=== PATIENT | male | born 1950 | race Caucasian/White ===

== ENCOUNTER 2018-10-13 18:47 | Inpatient (IN) | payer MEDICARE, OTHER ==
[2018-10-13] MEDS ORDERED: GLUCAGON 1 MG INJ IM (21:01)
[2018-10-13] MEDS ORDERED: ATORVASTATIN 20 MG TAB PO (21:01)
[2018-10-13] MEDS ORDERED: PANTOPRAZOLE 40 MG INJ IV (21:01)
[2018-10-13] MEDS ORDERED: ACETAMINOPHEN 325 MG TAB PO (21:01)
[2018-10-13] MEDS ORDERED: AMLODIPINE 5 MG TAB PO (21:01)
[2018-10-13] MEDS ORDERED: GLUCOSE GEL 15 GRAM TUBE BUCCAL (21:01)
[2018-10-13] MEDS ORDERED: NACL 0.9% 3 ML SYG IV (21:01)
[2018-10-13] MEDS ORDERED: TAMSULOSIN (SR) 0.4 MG CAP PO (21:01)
[2018-10-13] MEDS ORDERED: hydrALAzine 20 MG INJ IV (21:01)
[2018-10-13] MEDS ORDERED: ONDANSETRON 4 MG INJ IV (21:01)
[2018-10-13] MEDS ORDERED: ENOXAPARIN 40 MG/0.4 ML SYG SC (21:01)
[2018-10-13] MEDS ORDERED: HYDROmorphONE 0.5 MG/0.5 ML SYG IV (21:01)
[2018-10-13] MEDS ORDERED: GLUCOSE GEL 15 GRAM TUBE PO ×2 (21:01)
[2018-10-13] MEDS ORDERED: DEXTROSE 50% 50 ML SYRINGE IV ×2 (21:01)
[2018-10-13] MEDS ORDERED: ALBUTEROL/IPRATROPIUM (NEB) 3 ML AMP HHN (21:01)
[2018-10-13] MEDS ORDERED: LOSARTAN 50 MG TAB PO (21:01)
[2018-10-13] MEDS: HYDROCODONE/APAP (5/325) TAB PO (22:14)
[2018-10-13] MEDS: TAMSULOSIN (SR) 0.4 MG CAP PO (22:15)
[2018-10-13] MEDS: LOSARTAN 50 MG TAB PO (22:16)
[2018-10-13] MEDS: AMLODIPINE 5 MG TAB PO (22:17)
[2018-10-13] MEDS: ATORVASTATIN 20 MG TAB PO (22:17)
[2018-10-14 00:32] LABS: ADD UMIC YES; UR ASCORBIC ACID NEGATIVE (NEGATIVE); UR BACTERIA FEW /HPF (NONE SEEN); UR BILIRUBIN (Dip) NEGATIVE (NEGATIVE); UR BLOOD (Dip) 3+ mg/dL (NEGATIVE); UR CLARITY CLEAR (CLEAR); UR COLOR YELLOW (YELLOW); UR GLUCOSE (Dip) 1+ mg/dL (NEGATIVE); UR KETONES (Dip) NEGATIVE (NEGATIVE); UR LEUKOCYTE ESTERASE (Dip) NEGATIVE Leu/ul (NEGATIVE); UR NITRITE (Dip) NEGATIVE (NEGATIVE); UR RBC > 182 /HPF (0-5); UR SPECIFIC GRAVITY (Dip) 1.015 (1.003-1.030); UR TOTAL PROTEIN (Dip) 2+ mg/dl (NEGATIVE); UR UROBILINOGEN (Dip) NEGATIVE (NEGATIVE); UR WBC 5 /HPF (0-5)
[2018-10-14] MEDS: ZOLPIDEM 5 MG TAB PO (02:23)
[2018-10-14] MEDS ORDERED: BISACODYL 10 MG SUPP PR (05:00)
[2018-10-14] MEDS ORDERED: MAGNESIUM HYDROXIDE 30ML CUP PO (05:00)
[2018-10-14] MEDS ORDERED: LACTULOSE 30ML CUP PO (05:00)
[2018-10-14] MEDS: PANTOPRAZOLE (EC) 40 MG TAB PO ×2 (06:23→17:49)
[2018-10-14 08:26] LABS: ADD MAN DIFF? NO
[2018-10-14] MEDS: HYDROCODONE/APAP (5/325) TAB PO ×2 (08:40→21:13)
[2018-10-14 08:41] LABS: BASOPHILS % 0.5 % (0.0-2.0); EOSINOPHILS # 0.2 10^3/ul (0.0-0.5); EOSINOPHILS % 2.3 % (0.0-7.0); HEMATOCRIT 33.6 % (42.0-52.0); HEMOGLOBIN 11.4 g/dl (14.0-18.0); LYMPHOCYTES # 1.7 10^3/ul (0.8-2.9); LYMPHOCYTES % 20.2 % (15.0-51.0); MEAN CORPUSCULAR HEMOGLOBIN 31.1 pg (29.0-33.0); MEAN CORPUSCULAR HGB CONC 33.9 g/dl (32.0-37.0); MEAN CORPUSCULAR VOLUME 91.6 fl (82.0-101.0); MEAN PLATELET VOLUME 10.8 fl (7.4-10.4); MONOCYTE # 0.5 10^3/ul (0.3-0.9); MONOCYTES % 5.9 % (0.0-11.0); NEUTROPHIL # 5.7 10^3/ul (1.6-7.5); NEUTROPHILS % 70.4 % (39.0-77.0); PLATELET COUNT 215 10^3/UL (140-415); RED BLOOD COUNT 3.67 10^6/ul (4.70-6.10); RED CELL DISTRIBUTION WIDTH 13.9 % (11.5-14.5)
[2018-10-14 08:41] LABS: WHITE BLOOD COUNT 8.2 10^3/ul (4.8-10.8)
[2018-10-14] MEDS: LOSARTAN 50 MG TAB PO ×2 (08:42→21:13)
[2018-10-14] MEDS: ASPIRIN 81 MG TAB PO (08:42)
[2018-10-14] MEDS: FOLIC ACID 1 MG TAB PO (08:42)
[2018-10-14] MEDS: DOCUSATE SODIUM 250 MG CAP PO (08:42)
[2018-10-14] MEDS: AMLODIPINE 5 MG TAB PO ×2 (08:42→21:13)
[2018-10-14 09:20] LABS: ALANINE AMINOTRANSFERASE 14 IU/L (13-69); ALBUMIN 2.8 g/dl (3.3-4.9); ALKALINE PHOSPHATASE 84 IU/L (42-121); ANION GAP 9 (5-13); ASPARTATE AMINO TRANSFERASE 21 IU/L (15-46); BILIRUBIN,INDIRECT 0.2 mg/dl (0-1.1); BILIRUBIN,TOTAL 0.2 mg/dl (0.2-1.3); BLOOD UREA NITROGEN 7 mg/dl (7-20); CALCIUM 8.7 mg/dl (8.4-10.2); CARBON DIOXIDE 25 mmol/L (21-31); CHLORIDE 101 mmol/L (97-110); CREATININE 0.66 mg/dl (0.61-1.24); Estimated GFR > 60 mL/min (>60); GLUCOSE 134 mg/dl (70-220); POTASSIUM 3.2 mmol/L (3.5-5.1); SODIUM 135 mmol/L (135-144); TOTAL PROTEIN 5.6 g/dl (6.1-8.1)
[2018-10-14] MEDS: ATORVASTATIN 20 MG TAB PO (21:13)
[2018-10-14] MEDS: TAMSULOSIN (SR) 0.4 MG CAP PO (21:14)
[2018-10-15] MEDS: POTASSIUM CHLORIDE (SR) 20 MEQ TAB PO (02:44)
[2018-10-15] MEDS: HYDROCODONE/APAP (5/325) TAB PO (02:45)
[2018-10-15] MEDS: PANTOPRAZOLE (EC) 40 MG TAB PO ×2 (06:35→16:55)
[2018-10-15 07:17] LABS: ANION GAP 7 (5-13); BLOOD UREA NITROGEN 8 mg/dl (7-20); CALCIUM 8.6 mg/dl (8.4-10.2); CARBON DIOXIDE 26 mmol/L (21-31); CHLORIDE 101 mmol/L (97-110); CREATININE 0.72 mg/dl (0.61-1.24); Estimated GFR > 60 mL/min (>60); GLUCOSE 119 mg/dl (70-220); POTASSIUM 3.3 mmol/L (3.5-5.1); SODIUM 134 mmol/L (135-144)
[2018-10-15] MEDS: DOCUSATE SODIUM 250 MG CAP PO (09:48)
[2018-10-15] MEDS: FOLIC ACID 1 MG TAB PO (09:48)
[2018-10-15] MEDS: AMLODIPINE 5 MG TAB PO ×2 (09:49→20:45)
[2018-10-15] MEDS: ASPIRIN 81 MG TAB PO (09:49)
[2018-10-15] MEDS: LOSARTAN 50 MG TAB PO ×2 (09:49→20:45)
[2018-10-15] MEDS: ENOXAPARIN 40 MG/0.4 ML SYG SC (09:50)
[2018-10-15] MEDS: ATORVASTATIN 20 MG TAB PO (20:45)
[2018-10-15] MEDS: TAMSULOSIN (SR) 0.4 MG CAP PO (20:45)
[2018-10-15] MEDS: ACETAMINOPHEN 325 MG TAB PO (20:46)
[2018-10-16] MEDS: HYDROCODONE/APAP (5/325) TAB PO ×2 (02:12→17:33)
[2018-10-16] MEDS: PANTOPRAZOLE (EC) 40 MG TAB PO ×2 (06:32→17:32)
[2018-10-16 08:31] LABS: ADD MAN DIFF? NO
[2018-10-16] MEDS: ACETAMINOPHEN 325 MG TAB PO ×2 (08:42→15:08)
[2018-10-16] MEDS: DOCUSATE SODIUM 250 MG CAP PO (08:42)
[2018-10-16] MEDS: FOLIC ACID 1 MG TAB PO (08:42)
[2018-10-16 08:43] LABS: BASOPHIL # 0.1 10^3/ul (0.0-0.1); BASOPHILS % 0.9 % (0.0-2.0); EOSINOPHILS # 0.2 10^3/ul (0.0-0.5); EOSINOPHILS % 2.1 % (0.0-7.0); HEMATOCRIT 34.3 % (42.0-52.0); HEMOGLOBIN 11.6 g/dl (14.0-18.0); LYMPHOCYTES # 1.4 10^3/ul (0.8-2.9); LYMPHOCYTES % 16.9 % (15.0-51.0); MEAN CORPUSCULAR HEMOGLOBIN 30.9 pg (29.0-33.0); MEAN CORPUSCULAR HGB CONC 33.8 g/dl (32.0-37.0); MEAN CORPUSCULAR VOLUME 91.2 fl (82.0-101.0); MEAN PLATELET VOLUME 9.6 fl (7.4-10.4); MONOCYTE # 0.4 10^3/ul (0.3-0.9); MONOCYTES % 4.4 % (0.0-11.0); NEUTROPHIL # 6.1 10^3/ul (1.6-7.5); NEUTROPHILS % 74.8 % (39.0-77.0); PLATELET COUNT 269 10^3/UL (140-415); RED BLOOD COUNT 3.76 10^6/ul (4.70-6.10); RED CELL DISTRIBUTION WIDTH 13.9 % (11.5-14.5)
[2018-10-16 08:43] LABS: WHITE BLOOD COUNT 8.1 10^3/ul (4.8-10.8)
[2018-10-16] MEDS: LOSARTAN 50 MG TAB PO ×2 (08:43→21:18)
[2018-10-16] MEDS: ENOXAPARIN 40 MG/0.4 ML SYG SC ×2 (08:43→10:18)
[2018-10-16] MEDS: AMLODIPINE 5 MG TAB PO ×2 (08:43→21:18)
[2018-10-16] MEDS: ASPIRIN 81 MG TAB PO (08:49)
[2018-10-16 09:09] LABS: ANION GAP 9 (5-13); BLOOD UREA NITROGEN 10 mg/dl (7-20); CALCIUM 8.8 mg/dl (8.4-10.2); CARBON DIOXIDE 24 mmol/L (21-31); CHLORIDE 99 mmol/L (97-110); CREATININE 0.73 mg/dl (0.61-1.24); Estimated GFR > 60 mL/min (>60); GLUCOSE 149 mg/dl (70-220); MAGNESIUM 1.4 mg/dl (1.7-2.5); PHOSPHORUS 2.8 mg/dl (2.5-4.9); POTASSIUM 3.4 mmol/L (3.5-5.1); SODIUM 132 mmol/L (135-144)
[2018-10-16] MEDS: MAGNESIUM OXIDE 400 MG TAB PO (12:10)
[2018-10-16] MEDS: POTASSIUM CHLORIDE 20 MEQ POWDER FOR ORAL SOLN PO (12:10)
[2018-10-16] MEDS: ATORVASTATIN 20 MG TAB PO (21:17)
[2018-10-16] MEDS: TAMSULOSIN (SR) 0.4 MG CAP PO (21:17)
[2018-10-17] MEDS: PANTOPRAZOLE (EC) 40 MG TAB PO ×2 (06:19→17:18)
[2018-10-17] MEDS: DOCUSATE SODIUM 250 MG CAP PO (08:29)
[2018-10-17] MEDS: AMLODIPINE 5 MG TAB PO ×2 (08:29→20:32)
[2018-10-17] MEDS: FOLIC ACID 1 MG TAB PO (08:29)
[2018-10-17] MEDS: LOSARTAN 50 MG TAB PO ×2 (08:29→20:32)
[2018-10-17] MEDS: ENOXAPARIN 40 MG/0.4 ML SYG SC (08:37)
[2018-10-17] MEDS: ASPIRIN 81 MG TAB PO (08:37)
[2018-10-17 10:07] LABS: ADD MAN DIFF? NO
[2018-10-17 10:10] LABS: WHITE BLOOD COUNT 8.4 10^3/ul (4.8-10.8)
[2018-10-17 10:10] LABS: BASOPHIL # 0.1 10^3/ul (0.0-0.1); EOSINOPHILS # 0.1 10^3/ul (0.0-0.5); EOSINOPHILS % 1.6 % (0.0-7.0); HEMATOCRIT 32.5 % (42.0-52.0); HEMOGLOBIN 10.9 g/dl (14.0-18.0); LYMPHOCYTES # 1.1 10^3/ul (0.8-2.9); LYMPHOCYTES % 13.3 % (15.0-51.0); MEAN CORPUSCULAR HEMOGLOBIN 30.8 pg (29.0-33.0); MEAN CORPUSCULAR HGB CONC 33.5 g/dl (32.0-37.0); MEAN CORPUSCULAR VOLUME 91.8 fl (82.0-101.0); MEAN PLATELET VOLUME 9.7 fl (7.4-10.4); MONOCYTE # 0.3 10^3/ul (0.3-0.9); MONOCYTES % 3.5 % (0.0-11.0); NEUTROPHIL # 6.7 10^3/ul (1.6-7.5); NEUTROPHILS % 79.8 % (39.0-77.0); PLATELET COUNT 281 10^3/UL (140-415); RED BLOOD COUNT 3.54 10^6/ul (4.70-6.10); RED CELL DISTRIBUTION WIDTH 14.1 % (11.5-14.5)
[2018-10-17] MEDS: HYDROCODONE/APAP (5/325) TAB PO ×2 (11:28→20:31)
[2018-10-17 15:26] LABS: ADD UMIC YES; UR ASCORBIC ACID NEGATIVE (NEGATIVE); UR BACTERIA FEW /HPF (NONE SEEN); UR BILIRUBIN (Dip) NEGATIVE (NEGATIVE); UR BLOOD (Dip) 3+ mg/dL (NEGATIVE); UR CLARITY SLIGHTLY CLOUDY (CLEAR); UR COLOR RED (YELLOW); UR GLUCOSE (Dip) 1+ mg/dL (NEGATIVE); UR KETONES (Dip) NEGATIVE (NEGATIVE); UR LEUKOCYTE ESTERASE (Dip) TRACE Leu/ul (NEGATIVE); UR NITRITE (Dip) NEGATIVE (NEGATIVE); UR RBC > 182 /HPF (0-5); UR SPECIFIC GRAVITY (Dip) 1.013 (1.003-1.030); UR TOTAL PROTEIN (Dip) 2+ mg/dl (NEGATIVE); UR UROBILINOGEN (Dip) NEGATIVE (NEGATIVE); UR WBC 103 /HPF (0-5)
[2018-10-17] MEDS: TAMSULOSIN (SR) 0.4 MG CAP PO (20:31)
[2018-10-17] MEDS: ATORVASTATIN 20 MG TAB PO (20:31)
[2018-10-17] MEDS: ZOLPIDEM 5 MG TAB PO (20:33)
[2018-10-18] MEDS: HYDROCODONE/APAP (5/325) TAB PO ×2 (02:10→19:54)
[2018-10-18] MEDS: PANTOPRAZOLE (EC) 40 MG TAB PO ×2 (06:42→17:41)
[2018-10-18] MEDS: ACETAMINOPHEN 325 MG TAB PO ×2 (08:38→21:56)
[2018-10-18] MEDS: ASPIRIN 81 MG TAB PO (08:38)
[2018-10-18] MEDS: DOCUSATE SODIUM 250 MG CAP PO (08:38)
[2018-10-18] MEDS: AMLODIPINE 5 MG TAB PO ×2 (08:39→20:30)
[2018-10-18] MEDS: LOSARTAN 50 MG TAB PO ×2 (08:39→20:29)
[2018-10-18] MEDS: FOLIC ACID 1 MG TAB PO (08:39)
[2018-10-18] MEDS: ENOXAPARIN 40 MG/0.4 ML SYG SC (08:40)
[2018-10-18] MEDS: TAMSULOSIN (SR) 0.4 MG CAP PO (20:29)
[2018-10-18] MEDS: ATORVASTATIN 20 MG TAB PO (20:30)
[2018-10-18] MEDS: ZOLPIDEM 5 MG TAB PO (21:56)
[2018-10-19] MEDS: HYDROCODONE/APAP (5/325) TAB PO ×3 (02:15→16:33)
[2018-10-19] MEDS: ACETAMINOPHEN 325 MG TAB PO (04:03)
[2018-10-19] MEDS: PANTOPRAZOLE (EC) 40 MG TAB PO ×2 (06:22→17:53)
[2018-10-19] MEDS: DOCUSATE SODIUM 250 MG CAP PO (09:51)
[2018-10-19] MEDS: FOLIC ACID 1 MG TAB PO (09:51)
[2018-10-19] MEDS: ASPIRIN 81 MG TAB PO (09:51)
[2018-10-19] MEDS: ENOXAPARIN 40 MG/0.4 ML SYG SC (09:51)
[2018-10-19] MEDS: LOSARTAN 50 MG TAB PO ×2 (09:52→20:24)
[2018-10-19] MEDS: AMLODIPINE 5 MG TAB PO ×2 (09:53→20:24)
[2018-10-19] MEDS: TAMSULOSIN (SR) 0.4 MG CAP PO ×2 (13:57→20:24)
[2018-10-19] MEDS: ATORVASTATIN 20 MG TAB PO (20:25)
[2018-10-20] MEDS: HYDROCODONE/APAP (5/325) TAB PO ×3 (03:48→20:28)
[2018-10-20] MEDS: PANTOPRAZOLE (EC) 40 MG TAB PO ×2 (06:23→17:25)
[2018-10-20] MEDS: ENOXAPARIN 40 MG/0.4 ML SYG SC (08:07)
[2018-10-20] MEDS: AMLODIPINE 5 MG TAB PO ×2 (08:08→20:27)
[2018-10-20] MEDS: TAMSULOSIN (SR) 0.4 MG CAP PO ×2 (08:08→20:27)
[2018-10-20] MEDS: ASPIRIN 81 MG TAB PO (08:08)
[2018-10-20] MEDS: FOLIC ACID 1 MG TAB PO (08:08)
[2018-10-20] MEDS: DOCUSATE SODIUM 250 MG CAP PO (08:09)
[2018-10-20] MEDS: LOSARTAN 50 MG TAB PO ×2 (08:09→20:26)
[2018-10-20] MEDS: ATORVASTATIN 20 MG TAB PO (20:26)
[2018-10-20] MEDS: ZOLPIDEM 5 MG TAB PO (22:16)
[2018-10-21] MEDS: PANTOPRAZOLE (EC) 40 MG TAB PO ×2 (06:08→17:57)
[2018-10-21] MEDS: FOLIC ACID 1 MG TAB PO (09:05)
[2018-10-21] MEDS: TAMSULOSIN (SR) 0.4 MG CAP PO ×2 (09:05→22:10)
[2018-10-21] MEDS: DOCUSATE SODIUM 250 MG CAP PO (09:05)
[2018-10-21] MEDS: HYDROCODONE/APAP (5/325) TAB PO ×2 (09:05→19:57)
[2018-10-21] MEDS: ASPIRIN 81 MG TAB PO (09:05)
[2018-10-21] MEDS: AMLODIPINE 5 MG TAB PO ×2 (09:06→22:20)
[2018-10-21] MEDS: LOSARTAN 50 MG TAB PO ×2 (09:06→22:18)
[2018-10-21] MEDS: ENOXAPARIN 40 MG/0.4 ML SYG SC (09:07)
[2018-10-21] MEDS: ATORVASTATIN 20 MG TAB PO (22:10)
[2018-10-21] MEDS: ZOLPIDEM 5 MG TAB PO (22:11)
[2018-10-22] MEDS: HYDROCODONE/APAP (5/325) TAB PO ×2 (02:37→20:22)
[2018-10-22] MEDS: PANTOPRAZOLE (EC) 40 MG TAB PO ×2 (06:23→17:32)
[2018-10-22] MEDS: FOLIC ACID 1 MG TAB PO (08:11)
[2018-10-22] MEDS: ASPIRIN 81 MG TAB PO (08:11)
[2018-10-22] MEDS: DOCUSATE SODIUM 250 MG CAP PO (08:11)
[2018-10-22] MEDS: TAMSULOSIN (SR) 0.4 MG CAP PO ×2 (08:11→20:21)
[2018-10-22] MEDS: AMLODIPINE 5 MG TAB PO ×2 (08:14→20:21)
[2018-10-22] MEDS: LOSARTAN 50 MG TAB PO ×2 (08:15→20:22)
[2018-10-22] MEDS: ENOXAPARIN 40 MG/0.4 ML SYG SC (10:21)
[2018-10-22] MEDS: ATORVASTATIN 20 MG TAB PO (20:22)
[2018-10-23] MEDS: ZOLPIDEM 5 MG TAB PO ×2 (00:20→20:33)
[2018-10-23] MEDS: PANTOPRAZOLE (EC) 40 MG TAB PO ×2 (06:37→17:32)
[2018-10-23] MEDS: HYDROCODONE/APAP (5/325) TAB PO (06:38)
[2018-10-23] MEDS: ASPIRIN 81 MG TAB PO (09:08)
[2018-10-23] MEDS: AMLODIPINE 5 MG TAB PO ×2 (09:08→20:34)
[2018-10-23] MEDS: DOCUSATE SODIUM 250 MG CAP PO (09:08)
[2018-10-23] MEDS: TAMSULOSIN (SR) 0.4 MG CAP PO ×2 (09:09→20:33)
[2018-10-23] MEDS: LOSARTAN 50 MG TAB PO ×2 (09:09→20:34)
[2018-10-23] MEDS: FOLIC ACID 1 MG TAB PO (09:09)
[2018-10-23] MEDS: ENOXAPARIN 40 MG/0.4 ML SYG SC (09:14)
[2018-10-23] MEDS: CEFTRIAXONE 1 GM/50 ML (PMX) 50 ML IVPB (14:54)
[2018-10-23] MEDS: ATORVASTATIN 20 MG TAB PO (20:33)
[2018-10-24] MEDS: PANTOPRAZOLE (EC) 40 MG TAB PO ×2 (05:53→17:58)
[2018-10-24] MEDS: HYDROCODONE/APAP (5/325) TAB PO ×3 (05:56→20:49)
[2018-10-24] MEDS: ENOXAPARIN 40 MG/0.4 ML SYG SC (09:00)
[2018-10-24] MEDS: DOCUSATE SODIUM 250 MG CAP PO (09:35)
[2018-10-24] MEDS: ASPIRIN 81 MG TAB PO (09:35)
[2018-10-24] MEDS: TAMSULOSIN (SR) 0.4 MG CAP PO ×2 (09:35→20:48)
[2018-10-24] MEDS: FOLIC ACID 1 MG TAB PO (09:35)
[2018-10-24] MEDS: AMLODIPINE 5 MG TAB PO ×2 (09:36→20:49)
[2018-10-24] MEDS: LOSARTAN 50 MG TAB PO ×2 (09:36→20:50)
[2018-10-24] MEDS: CEFTRIAXONE 1 GM/50 ML (PMX) 50 ML IVPB (14:20)
[2018-10-24] MEDS: ATORVASTATIN 20 MG TAB PO (20:50)
[2018-10-24] MEDS: ZOLPIDEM 5 MG TAB PO (22:05)
[2018-10-25] MEDS: PANTOPRAZOLE (EC) 40 MG TAB PO ×2 (06:15→17:51)
[2018-10-25] MEDS: ENOXAPARIN 40 MG/0.4 ML SYG SC (09:17)
[2018-10-25] MEDS: FOLIC ACID 1 MG TAB PO (09:18)
[2018-10-25] MEDS: TAMSULOSIN (SR) 0.4 MG CAP PO ×2 (09:18→20:58)
[2018-10-25] MEDS: AMLODIPINE 5 MG TAB PO ×2 (09:18→20:59)
[2018-10-25] MEDS: ASPIRIN 81 MG TAB PO (09:18)
[2018-10-25] MEDS: DOCUSATE SODIUM 250 MG CAP PO (09:18)
[2018-10-25] MEDS: LOSARTAN 50 MG TAB PO ×2 (09:19→20:59)
[2018-10-25] MEDS: CEFTRIAXONE 1 GM/50 ML (PMX) 50 ML IVPB (12:51)
[2018-10-25] MEDS: HYDROCODONE/APAP (5/325) TAB PO ×2 (16:54→23:28)
[2018-10-25] MEDS: ATORVASTATIN 20 MG TAB PO (20:59)
[2018-10-25] MEDS: ZOLPIDEM 5 MG TAB PO (23:28)
[2018-10-26] MEDS: PANTOPRAZOLE (EC) 40 MG TAB PO (06:37)
[2018-10-26] MEDS: AMLODIPINE 5 MG TAB PO (08:11)
[2018-10-26] MEDS: DOCUSATE SODIUM 250 MG CAP PO (08:12)
[2018-10-26] MEDS: HYDROCODONE/APAP (5/325) TAB PO (08:12)
[2018-10-26] MEDS: LOSARTAN 50 MG TAB PO (08:12)
[2018-10-26] MEDS: ASPIRIN 81 MG TAB PO (08:12)
[2018-10-26] MEDS: TAMSULOSIN (SR) 0.4 MG CAP PO (08:12)
[2018-10-26] MEDS: FOLIC ACID 1 MG TAB PO (08:12)
[2018-10-26] MEDS: ENOXAPARIN 40 MG/0.4 ML SYG SC (08:19)
== END 2018-10-26 11:30 | disposition home health service (06) | DRG 945 ==
LOC: VRC 18:47
PROC: F07Z5ZZ Bed Mobility Treatment (ICD-10-PCS; principal; 2018-10-13)
PROC: F08Z2ZZ Grooming/Personal Hygiene Treatment (ICD-10-PCS; 2018-10-13)
DX: R53.81 Other malaise (principal); N17.9 Acute kidney failure, unspecified; R52 Pain, unspecified; E78.5 Hyperlipidemia, unspecified; Z85.030 Personal history of malignant carcinoid tumor of large intestine; Z86.73 Personal history of transient ischemic attack (TIA), and cerebral infarction without residual deficits; Z90.49 Acquired absence of other specified parts of digestive tract; R33.9 Retention of urine, unspecified; I10 Essential (primary) hypertension; N40.0 Benign prostatic hyperplasia without lower urinary tract symptoms
CPT/HCPCS: 80048; 80053; 81001; 83735; 84100; 84153; 84154; 85025; 87081; 87086; 97110; 97112; 97116; 97150; 97163; 97167; 97530; 97535; 97542

== ENCOUNTER 2018-10-27 18:13 | Emergency (ER) | payer MEDICARE, OTHER | END 2018-10-27 23:09 | disposition home or self-care (01) | LOC: E/R 18:13 | DX: Z48.01 Encounter for change or removal of surgical wound dressing (principal); I10 Essential (primary) hypertension; Z79.82 Long term (current) use of aspirin; Z87.891 Personal history of nicotine dependence | CPT/HCPCS: 99281 ==

== ENCOUNTER 2019-01-31 20:51 | Inpatient (IN) | payer OTHER, MEDICARE ==
[2019-02-01] MEDS: hydrALAzine 20 MG INJ IV ×2 (02:27→07:45)
[2019-02-01 02:35] LABS: ADD MAN DIFF? NO
[2019-02-01 02:39] LABS: WHITE BLOOD COUNT 9.1 10^3/ul (4.8-10.8)
[2019-02-01 02:39] LABS: BASOPHIL # 0.1 10^3/ul (0.0-0.1); BASOPHILS % 0.8 % (0.0-2.0); EOSINOPHILS # 0.1 10^3/ul (0.0-0.5); EOSINOPHILS % 0.6 % (0.0-7.0); HEMATOCRIT 48.6 % (42.0-52.0); HEMOGLOBIN 15.7 g/dl (14.0-18.0); LYMPHOCYTES # 1.6 10^3/ul (0.8-2.9); MEAN CORPUSCULAR HEMOGLOBIN 28.5 pg (29.0-33.0); MEAN CORPUSCULAR HGB CONC 32.3 g/dl (32.0-37.0); MEAN CORPUSCULAR VOLUME 88.2 fl (82.0-101.0); MEAN PLATELET VOLUME 11.2 fl (7.4-10.4); MONOCYTE # 0.6 10^3/ul (0.3-0.9); MONOCYTES % 6.8 % (0.0-11.0); NEUTROPHIL # 6.7 10^3/ul (1.6-7.5); NEUTROPHILS % 73.5 % (39.0-77.0); PLATELET COUNT 249 10^3/UL (140-415); RED BLOOD COUNT 5.51 10^6/ul (4.70-6.10); RED CELL DISTRIBUTION WIDTH 14.5 % (11.5-14.5)
[2019-02-01 03:04] LABS: INR 0.85; PROTIME 11.7 Sec (11.9-14.9); PT RATIO 0.9
[2019-02-01 03:06] LABS: ANION GAP 12 (5-13); BLOOD UREA NITROGEN 23 mg/dl (7-20); CALCIUM 9.9 mg/dl (8.4-10.2); CARBON DIOXIDE 27 mmol/L (21-31); CHLORIDE 104 mmol/L (97-110); CREATININE 1.02 mg/dl (0.61-1.24); Estimated GFR > 60 mL/min (>60); GLUCOSE 214 mg/dl (70-220); POTASSIUM 3.3 mmol/L (3.5-5.1); SODIUM 143 mmol/L (135-144)
[2019-02-01 03:13] LABS: PARTIAL THROMBOPLASTIN TIME 27.2 Sec (23.0-35.0)
[2019-02-01 03:37] LABS: ADD UMIC YES; UR ASCORBIC ACID NEGATIVE (NEGATIVE); UR BILIRUBIN (Dip) NEGATIVE (NEGATIVE); UR BLOOD (Dip) NEGATIVE (NEGATIVE); UR CLARITY SLIGHTLY CLOUDY (CLEAR); UR COLOR YELLOW (YELLOW); UR GLUCOSE (Dip) 2+ mg/dL (NEGATIVE); UR KETONES (Dip) NEGATIVE (NEGATIVE); UR LEUKOCYTE ESTERASE (Dip) NEGATIVE Leu/ul (NEGATIVE); UR NITRITE (Dip) NEGATIVE (NEGATIVE); UR RBC 2 /HPF (0-5); UR TOTAL PROTEIN (Dip) 3+ mg/dl (NEGATIVE); UR UROBILINOGEN (Dip) NEGATIVE (NEGATIVE); UR WBC 2 /HPF (0-5)
[2019-02-01] MEDS ORDERED: ACETAMINOPHEN 325 MG TAB PO (17:00)
[2019-02-01] MEDS ORDERED: ONDANSETRON 4 MG INJ IV (17:00)
[2019-02-01] MEDS: INSULIN ASPART [NOVOLOG] 3 ML PEN SC ×2 (17:29→21:00)
[2019-02-01] MEDS ORDERED: GLUCOSE GEL 15 GRAM TUBE PO ×2 (17:30)
[2019-02-01] MEDS ORDERED: GLUCOSE GEL 15 GRAM TUBE BUCCAL (17:30)
[2019-02-01] MEDS ORDERED: DEXTROSE 50% 50 ML SYRINGE IV ×2 (17:30)
[2019-02-01] MEDS ORDERED: GLUCAGON 1 MG INJ IM (17:30)
[2019-02-01] MEDS: AMLODIPINE 5 MG TAB PO (17:31)
[2019-02-01] MEDS: ATORVASTATIN 20 MG TAB PO (21:48)
[2019-02-02] MEDS: PANTOPRAZOLE (EC) 40 MG TAB PO (06:44)
[2019-02-02] MEDS: INSULIN ASPART [NOVOLOG] 3 ML PEN SC ×4 (08:00→21:00)
[2019-02-02] MEDS: ASPIRIN 81 MG TAB PO (09:22)
[2019-02-02] MEDS: AMLODIPINE 5 MG TAB PO ×2 (09:23→21:22)
[2019-02-02 15:52] LABS: TROPONIN-I 0.719 ng/ml (0.000-0.120)
[2019-02-02] MEDS: ATORVASTATIN 20 MG TAB PO (21:21)
[2019-02-03] MEDS: PANTOPRAZOLE (EC) 40 MG TAB PO (05:49)
[2019-02-03] MEDS: LORAZEPAM 2 MG INJ IV (05:55)
[2019-02-03 06:28] LABS: ADD MAN DIFF? NO
[2019-02-03] MEDS: hydrALAzine 20 MG INJ IV (06:28)
[2019-02-03 06:36] LABS: BASOPHIL # 0.1 10^3/ul (0.0-0.1); BASOPHILS % 0.8 % (0.0-2.0); EOSINOPHILS # 0.2 10^3/ul (0.0-0.5); EOSINOPHILS % 2.3 % (0.0-7.0); HEMOGLOBIN 14.1 g/dl (14.0-18.0); LYMPHOCYTES # 1.9 10^3/ul (0.8-2.9); MEAN CORPUSCULAR HEMOGLOBIN 28.5 pg (29.0-33.0); MEAN CORPUSCULAR HGB CONC 32.8 g/dl (32.0-37.0); MEAN PLATELET VOLUME 11.3 fl (7.4-10.4); MONOCYTE # 0.7 10^3/ul (0.3-0.9); MONOCYTES % 7.5 % (0.0-11.0); NEUTROPHIL # 6.5 10^3/ul (1.6-7.5); NEUTROPHILS % 69.1 % (39.0-77.0); PLATELET COUNT 227 10^3/UL (140-415); RED BLOOD COUNT 4.94 10^6/ul (4.70-6.10); RED CELL DISTRIBUTION WIDTH 14.6 % (11.5-14.5)
[2019-02-03 06:36] LABS: WHITE BLOOD COUNT 9.4 10^3/ul (4.8-10.8)
[2019-02-03 07:01] LABS: ANION GAP 10 (5-13); BLOOD UREA NITROGEN 23 mg/dl (7-20); CALCIUM 9.5 mg/dl (8.4-10.2); CARBON DIOXIDE 28 mmol/L (21-31); CHLORIDE 102 mmol/L (97-110); CREATININE 0.84 mg/dl (0.61-1.24); Estimated GFR > 60 mL/min (>60); GLUCOSE 110 mg/dl (70-220); POTASSIUM 3.5 mmol/L (3.5-5.1); SODIUM 140 mmol/L (135-144)
[2019-02-03 07:07] LABS: PHOSPHORUS 3.9 mg/dl (2.5-4.9)
[2019-02-03 07:07] LABS: MAGNESIUM 1.8 mg/dl (1.7-2.5)
[2019-02-03] MEDS: INSULIN ASPART [NOVOLOG] 3 ML PEN SC ×4 (08:00→21:00)
[2019-02-03] MEDS: ASPIRIN 81 MG TAB PO (08:13)
[2019-02-03] MEDS: AMLODIPINE 5 MG TAB PO ×2 (08:13→21:13)
[2019-02-03] MEDS ORDERED: QUETIAPINE 100 MG TAB PO (21:00)
[2019-02-03] MEDS: ATORVASTATIN 20 MG TAB PO (21:12)
[2019-02-03] MEDS: TOLTERODINE (SR) 4 MG CAP PO (21:12)
[2019-02-03] MEDS: MEMANTINE 5 MG TAB PO (21:12)
[2019-02-03] MEDS: METOPROLOL 25 MG TAB PO (21:12)
[2019-02-04 01:42] LABS: CREATINE KINASE 136 IU/L (23-200)
[2019-02-04 01:56] LABS: CK INDEX 2.7
[2019-02-04 02:01] LABS: CK-MB 3.69 ng/ml (0.0-2.4); TROPONIN-I 0.342 ng/ml (0.000-0.120)
[2019-02-04 05:29] LABS: ANION GAP 6 (5-13); BLOOD UREA NITROGEN 32 mg/dl (7-20); CALCIUM 8.9 mg/dl (8.4-10.2); CARBON DIOXIDE 28 mmol/L (21-31); CHLORIDE 107 mmol/L (97-110); CREATININE 0.98 mg/dl (0.61-1.24); Estimated GFR > 60 mL/min (>60); GLUCOSE 121 mg/dl (70-220); POTASSIUM 3.6 mmol/L (3.5-5.1); SODIUM 141 mmol/L (135-144)
[2019-02-04 05:31] LABS: CREATINE KINASE 134 IU/L (23-200)
[2019-02-04 05:44] LABS: CK INDEX 2.6
[2019-02-04 05:53] LABS: CK-MB 3.48 ng/ml (0.0-2.4); TROPONIN-I 0.319 ng/ml (0.000-0.120)
[2019-02-04] MEDS: PANTOPRAZOLE (EC) 40 MG TAB PO (06:38)
[2019-02-04] MEDS: INSULIN ASPART [NOVOLOG] 3 ML PEN SC ×4 (08:00→20:33)
[2019-02-04] MEDS: ASPIRIN 81 MG TAB PO (08:57)
[2019-02-04] MEDS: AMLODIPINE 5 MG TAB PO ×2 (08:57→20:32)
[2019-02-04] MEDS: METOPROLOL 25 MG TAB PO ×2 (08:58→20:32)
[2019-02-04] MEDS: REGADENOSON 0.4 MG/5 ML SYG (12:00)
[2019-02-04] MEDS: CEFTRIAXONE 1 GM/50 ML (PMX) 50 ML IVPB (17:19)
[2019-02-04] MEDS: hydrALAzine 20 MG INJ IV (18:26)
[2019-02-04] MEDS: ATORVASTATIN 20 MG TAB PO (20:32)
[2019-02-04] MEDS: MEMANTINE 5 MG TAB PO (20:32)
[2019-02-04] MEDS: TOLTERODINE (SR) 4 MG CAP PO (20:32)
[2019-02-04] MEDS: LORAZEPAM 2 MG INJ IV (21:19)
[2019-02-05 05:19] LABS: ADD MAN DIFF? NO
[2019-02-05 05:20] LABS: BASOPHIL # 0.1 10^3/ul (0.0-0.1); BASOPHILS % 0.6 % (0.0-2.0); EOSINOPHILS # 0.4 10^3/ul (0.0-0.5); EOSINOPHILS % 4.5 % (0.0-7.0); HEMATOCRIT 39.3 % (42.0-52.0); HEMOGLOBIN 12.9 g/dl (14.0-18.0); LYMPHOCYTES # 1.6 10^3/ul (0.8-2.9); LYMPHOCYTES % 17.5 % (15.0-51.0); MEAN CORPUSCULAR HEMOGLOBIN 28.7 pg (29.0-33.0); MEAN CORPUSCULAR HGB CONC 32.8 g/dl (32.0-37.0); MEAN CORPUSCULAR VOLUME 87.5 fl (82.0-101.0); MEAN PLATELET VOLUME 11.2 fl (7.4-10.4); MONOCYTE # 0.7 10^3/ul (0.3-0.9); MONOCYTES % 7.6 % (0.0-11.0); NEUTROPHIL # 6.5 10^3/ul (1.6-7.5); NEUTROPHILS % 69.5 % (39.0-77.0); PLATELET COUNT 217 10^3/UL (140-415); RED BLOOD COUNT 4.49 10^6/ul (4.70-6.10); RED CELL DISTRIBUTION WIDTH 14.7 % (11.5-14.5)
[2019-02-05 05:20] LABS: WHITE BLOOD COUNT 9.3 10^3/ul (4.8-10.8)
[2019-02-05 06:04] LABS: ANION GAP 6 (5-13); BLOOD UREA NITROGEN 32 mg/dl (7-20); CALCIUM 8.9 mg/dl (8.4-10.2); CARBON DIOXIDE 27 mmol/L (21-31); CHLORIDE 109 mmol/L (97-110); CREATININE 0.89 mg/dl (0.61-1.24); Estimated GFR > 60 mL/min (>60); GLUCOSE 123 mg/dl (70-220); POTASSIUM 3.4 mmol/L (3.5-5.1); SODIUM 142 mmol/L (135-144)
[2019-02-05] MEDS: PANTOPRAZOLE (EC) 40 MG TAB PO (06:07)
[2019-02-05] MEDS: INSULIN ASPART [NOVOLOG] 3 ML PEN SC ×4 (08:00→20:14)
[2019-02-05] MEDS: AMLODIPINE 5 MG TAB PO ×2 (08:15→20:11)
[2019-02-05] MEDS: ASPIRIN 81 MG TAB PO (08:15)
[2019-02-05] MEDS: METOPROLOL 25 MG TAB PO ×2 (08:15→20:12)
[2019-02-05] MEDS: LOSARTAN 25 MG TAB PO ×2 (15:39→23:02)
[2019-02-05] MEDS: POTASSIUM CHLORIDE (SR) 20 MEQ TAB PO (15:39)
[2019-02-05] MEDS: CEFTRIAXONE 1 GM/50 ML (PMX) 50 ML IVPB (15:39)
[2019-02-05] MEDS: TOLTERODINE (SR) 4 MG CAP PO (20:10)
[2019-02-05] MEDS: MEMANTINE 5 MG TAB PO (20:11)
[2019-02-05] MEDS: ATORVASTATIN 20 MG TAB PO (20:12)
[2019-02-06] MEDS: PANTOPRAZOLE (EC) 40 MG TAB PO (05:58)
[2019-02-06] MEDS: INSULIN ASPART [NOVOLOG] 3 ML PEN SC ×2 (08:00→12:00)
[2019-02-06] MEDS: AMLODIPINE 5 MG TAB PO (08:11)
[2019-02-06] MEDS: ASPIRIN 81 MG TAB PO (08:12)
[2019-02-06] MEDS: LOSARTAN 25 MG TAB PO (08:12)
[2019-02-06] MEDS: METOPROLOL 25 MG TAB PO (08:12)
[2019-02-06 13:16] LABS: ANION GAP 6 (5-13); BLOOD UREA NITROGEN 23 mg/dl (7-20); CALCIUM 9.3 mg/dl (8.4-10.2); CARBON DIOXIDE 29 mmol/L (21-31); CHLORIDE 104 mmol/L (97-110); CREATININE 0.91 mg/dl (0.61-1.24); Estimated GFR > 60 mL/min (>60); GLUCOSE 137 mg/dl (70-220); POTASSIUM 4.5 mmol/L (3.5-5.1); SODIUM 139 mmol/L (135-144)
[2019-02-06] MEDS ORDERED: TAMSULOSIN (SR) 0.4 MG CAP PO (21:00)
[2019-02-06] MEDS ORDERED: AMOXICILLIN/CLAV 500 MG TAB PO (21:00)
== END 2019-02-06 17:55 | disposition home or self-care (01) | DRG 312 ==
LOC: E/R 20:51 → 6WM 02-01 05:17
PROC: C22G1ZZ Tomographic (Tomo) Nuclear Medicine Imaging of Myocardium using Technetium 99m (Tc-99m) (ICD-10-PCS; principal; 2019-02-04)
PROC: 4A02XM4 Measurement of Cardiac Total Activity, External Approach (ICD-10-PCS; 2019-02-04)
PROC: 3E033HZ Introduction of Radioactive Substance into Peripheral Vein, Percutaneous Approach (ICD-10-PCS; 2019-02-04)
PROC: 4A00X4Z Measurement of Central Nervous Electrical Activity, External Approach (ICD-10-PCS; 2019-02-04)
DX: R55 Syncope and collapse (principal); C20 Malignant neoplasm of rectum; Z85.038 Personal history of other malignant neoplasm of large intestine; I10 Essential (primary) hypertension; E78.5 Hyperlipidemia, unspecified; Z87.891 Personal history of nicotine dependence; E87.6 Hypokalemia; F41.9 Anxiety disorder, unspecified; R79.9 Abnormal finding of blood chemistry, unspecified; F03.90 Unspecified dementia, unspecified severity, without behavioral disturbance, psychotic disturbance, mood disturbance, and anxiety; E66.9 Obesity, unspecified; Z68.32 Body mass index [BMI] 32.0-32.9, adult; N40.0 Benign prostatic hyperplasia without lower urinary tract symptoms; R94.31 Abnormal electrocardiogram [ECG] [EKG]; R31.29 Other microscopic hematuria; I69.941 Monoplegia of lower limb following unspecified cerebrovascular disease affecting right dominant side; G40.909 Epilepsy, unspecified, not intractable, without status epilepticus
CPT/HCPCS: 70450; 70551; 71045; 76775; 78452; 80048; 81001; 82550; 82553; 82962; 83735; 84100; 84484; 85025; 85610; 85730; 87086; 93005; 93017; 93306; 93880; 95819; 97161; G0378